=== PATIENT | male | born 1975 | race Caucasian/White ===

== ENCOUNTER 2023-03-06 12:55 | Day surgery (SDC) | payer BC ==
[~2023-03-06] VITALS: Ht 182.9 cm; Wt 117.3 kg
[~2023-03-06 12:55] MED LIST: CEPH500 PO; DEPO-TESTO200 MG/1 M IM; HYDACE5 PO; IBUP800 PO; OLME20 PO; RXCEPH500 PO; SERT100
[2023-03-06 15:50] VITALS: BP 116/63
== END 2023-03-06 15:45 | disposition home or self-care (01) ==
LOC: ORSCSDS 12:55
PROVIDERS: Internal Medicine Gastroenterology
PROC: 0DJD8ZZ Inspection of Lower Intestinal Tract, Via Natural or Artificial Opening Endoscopic (ICD-10-PCS; principal; 2023-03-06 14:30)
DX: Z12.11 Encounter for screening for malignant neoplasm of colon (principal); K57.30 Diverticulosis of large intestine without perforation or abscess without bleeding; E11.9 Type 2 diabetes mellitus without complications; G47.33 Obstructive sleep apnea (adult) (pediatric)
CPT/HCPCS: 82947; J0330; J0461; J2405; J2704; J7120; Q9968